=== PATIENT | female | born 1970 | race Caucasian/White ===

== ENCOUNTER → 2023-05-13 10:06 | Outpatient (CLI) | payer BC, SELFPAY ==
--- NOTE | ~2023-05-13 | XR_ITS ---
XR knee RT min 4V DATE: 05/13/2023 10:53 INDICATION: Right knee pain and swelling TECHNIQUE: [place], lateral, PA and standing AP views COMPARISON: None FINDINGS: There is very prominent loss of medial compartment joint space with mild periarticular spur ring. There is minimal periarticular spurring at the patellofemoral joint. No fracture or dislocation is evident. Mild suprapatellar knee joint effusion is suggested. No radiopaque intra-articular loose body or chondrocalcinosis. No periosteal reaction or bone destruc tion. IMPRESSION: Osteoarthritis involving primarily the medial compartment Small knee joint effusion Reviewed, dictated and finalized at location B.
--- NOTE | ~2023-05-13 | XR_ITS ---
XR knee LT min 4V DATE: 05/13/2023 10:53 INDICATION: Pain and swelling of left knee TECHNIQUE: 4 views COMPARISON: None FINDINGS: There is minimal periarticular spurring at the patellofemoral and medial compartments. Ther e is moderately prominent loss of joint space at the medial compartment. No fracture or dislocation or joint effusion. No radiopaque intra-articular loose body or chondrocalc inosis. No periosteal reaction or bone destruction. IMPRESSION: Minimal periarticular spurring of the patellofemoral and medial compartments and moderate ly prominent loss of medial compartment joint space height, consistent with osteoarthritis Reviewed, dictated and finalized at location B. IMPRESSION: Minimal periarticular spurring of the patellofemoral and medial com partments and moderately prominent loss of medial compartment joint space zehra t, consistent with osteoarthritis
== END ==
PROVIDERS: Visit Provider Chiropractor
DX: M25.562 Pain in left knee (principal); M25.561 Pain in right knee; M17.0 Bilateral primary osteoarthritis of knee; M25.461 Effusion, right knee
CPT/HCPCS: 73564